=== PATIENT | female | born 1970 ===

== ENCOUNTER 2017-04-07 07:05 | Inpatient (IN) | payer OTHER, MEDICAID ==
[2017-03-23 14:02] LABS: APPEARANCE,URINE CLEAR; KETONES,URINE NEGATIVE (NEGATIVE); LEUKOCYTE ESTERASE ,URINE 2+ (NEGATIVE); NITRITE,URINE NEGATIVE (NEGATIVE); PH,URINE 5 (4.5-8.0); PROTEIN,URINE NEGATIVE (NEGATIVE); UROBILINOGEN,URINE NORMAL MG/DL (0.0-1.0)
[2017-03-23 14:03] LABS: BASOPHILS % (AUTO) 1.2 % (0.0-2.0); EOSINOPHILS % (AUTO) 2.1 % (0.0-3.0); MEAN CORPUSCULAR HEMOGLOBIN 32.1 PG (27.0-31.0); MEAN CORPUSCULAR HGB CONC 33.9 G/DL (32.0-36.0); MEAN CORPUSCULAR VOLUME 95 FL (80-99); MEAN PLATELET VOLUME 7.7 FL (6.5-10.1); MONOCYTES % (AUTO) 6.7 % (1.0-10.0); PLATELET COUNT 327 K/UL (150-450); RED BLOOD COUNT 4.16 M/UL (4.20-5.40); RED CELL DISTRIBUTION WIDTH 11.5 % (11.6-14.8); WHITE BLOOD COUNT 4.6 K/UL (4.8-10.8)
[2017-03-23 14:10] LABS: BACTERIA,URINE FEW /HPF; SQUAMOUS EPITHELIAL CELL,UR FEW /LPF (NONE/OCC)
[2017-03-23 14:16] LABS: ANION GAP 9 mmol/L (5-15); CALCIUM 9.5 MG/DL (8.5-10.1); CARBON DIOXIDE 28 MMOL/L (21-32); CHLORIDE 104 MMOL/L (98-107); CREATININE 0.6 MG/DL (0.55-1.30); GLOMERULAR FILTRATION RATE > 60 mL/min (>60); POTASSIUM 3.8 MMOL/L (3.5-5.1); SODIUM 140 MMOL/L (136-145)
--- NOTE | 2017-03-23 17:08 | Diagnostic Imaging Report ---
Indication: Cough Technique: 2 views of the chest Comparison: none. Findings: Lungs and pleural spaces are clear. Heart size is normal. Bones are unremarkable. Impression: No acute process
--- NOTE | 2017-04-02 17:58 | Cardiology Report ---
APPROVED REPORT EKG Measurement Heart [id number] Normal sinus rhythm Nonspecific T wave abnormality Abnormal ECG
--- NOTE | 2017-04-06 15:15 | Pre-op HX & Phy Repo 2 SIG ---
DATE OF ADMISSION: 04/07/2017 Scheduled for surgery 04/07/2017. HISTORY OF PRESENT ILLNESS: The patient is a 47-year-old female, in overall good health with a carcinoma of the right breast. The patient presented with a mass in the periphery of the upper outer quadrant of the right breast and core biopsy revealed invasive ductal carcinoma. The patient had marker studies revealing initially equivocal HER2/raman, which was found to be negative on subsequent panel testing. The patient is scheduled to undergo right breast partial mastectomy and right axillary lymph node biopsy. PAST MEDICAL HISTORY: None. MEDICATIONS: None. ALLERGIES: None. OPERATIONS: None. PHYSICAL EXAMINATION: GENERAL: The patient is 4 foot 5 inches, 170 pounds. HEENT: Within normal limits. LUNGS: Clear. HEART: Regular rhythm. BREASTS: Reveal a 3 x 5 cm mass in the periphery of the upper outer quadrant of the right breast. The left breast was unremarkable. There is no palpable axillary or supraclavicular lymphadenopathy. ABDOMEN: Soft. PELVIC AND RECTAL: Per primary care physician. EXTREMITIES: Without edema. NEUROLOGIC: Physiologic. IMPRESSION: Invasive ductal carcinoma, right breast. PLAN: I have had a full discussion with the patient regarding the nature of her surgery. Indications, alternatives, options, and risks including bleeding, infection, and need for additional surgery based on final pathology, potential for radiation therapy to the remaining right breast and chemotherapy if axillary lymph nodes are involved with metastatic cancer. All questions have been answered. I have discussed the risks including scarring deformity of the breast etc. Bret Esteves M.D. DR: DEO/DALTON JOB#: [id number] CC:
[~2017-04-07] VITALS: Ht 152.4 cm; Wt 77.1 kg
[2017-04-07] VITALS (14 sets, daily range): BP systolic 97–152; BP diastolic 48–72
[~2017-04-07 07:05] MED LIST: NKM
[2017-04-07] MEDS ORDERED: ceFAZolin sod 2 GM in D5W 110 ML IV ONE (08:00)
[2017-04-07] MEDS ORDERED: Bupivacaine 0.5% Inj 30 ml vial INJ ONE (08:05)
[2017-04-07] MEDS ORDERED: Lidocaine 1% 10mg/ml/Epi 0.005mg/ml 30ml vial INJ ONE (08:05)
--- NOTE | 2017-04-07 08:17 | Pre-Procedure Note/Attestation ---
Pre-Procedure Note/Attestation Complete Prior to Procedure Planned Procedure: right Procedure Narrative: right breast partial mastectomy and axillary lymph node biopsy Indications for Procedure Pre-Operative Diagnosis: carcinoma right breast Attestation I attest that I discussed the nature of the procedure; its benefits; risks and complications; and alternatives (and the risks and benefits of such alternatives ), prior to the procedure, with the patient (or the patient's legal employee representative). I attest that, if there was a reasonable possibility of needing a blood transfusion, the patient (or the patient's legal employee representative) was given the [facility] standardized written summary, pursuant to the Keyshawn Pittman Blood Safety Act ([place] Health and Safety Code # 1645, as amended). I attest that I re-evaluated the patient just prior to the surgery and that there has been no change in the patient's H&P, except as documented below:none XIANG DE LA TORRE Apr 07, 2017 08:17
[2017-04-07] MEDS ORDERED: Sterile Water Irrig 1000ml IRRIG ONE (09:00)
[2017-04-07] MEDS ORDERED: NS Irrig 1000ml ONE (09:00)
[2017-04-07] MEDS ORDERED: Glycopyrrolate 0.2mg/ml 1ml Vial ONE (09:00)
[2017-04-07] MEDS ORDERED: LR 1000ml ONE (09:00)
[2017-04-07] MEDS ORDERED: Zemuron 50mg/5ml Inj IV ONE (09:00)
[2017-04-07] MEDS ORDERED: Neostigmine 1mg/ml 10ml Inj ONE (09:00)
[2017-04-07] MEDS ORDERED: Succinylcholine 20mg/ml 10ml vial ONE (09:00)
[2017-04-07] MEDS ORDERED: fentaNYL 100 mcg/2 mL IV ONE (09:00)
[2017-04-07] MEDS ORDERED: Propofol 200mg/20ml IV ONE (09:00)
[2017-04-07] MEDS ORDERED: Ketorolac 30mg Inj ONE (09:00)
[2017-04-07] MEDS ORDERED: Midazolam 2mg/2ml Inj ONE (09:00)
[2017-04-07] MEDS ORDERED: LR 1000ml 1,000 ML IVLG SCH (09:44)
--- NOTE | 2017-04-07 09:44 | Anethesia Preoperative Eval ---
Anesthesia Pre-op PMH/ROS General Date of Evaluation: Apr 07, 2017 Time of Evaluation: 08:50 Anesthesiologist: Damari ASA Score: ASA 2 Mallampati Score Class I : Soft palate, uvula, fauces, pillars visible Class II: Soft palate, uvula, fauces visible Class III: Soft palate, base of uvula visible Class IV: Only hard plate visible Mallampati Classification: Class III Surgeon: Linn Diagnosis: R breast CA Surgical Procedure: R partial mastectomy with axillary l/n disection Anesthesia History: none Family History: no anesthesia problems Allergies: Coded Allergies: No Known Allergies (Unverified , 04/07/17) Medications: see eMAR Past Medical History Cardiovascular: Denies: HTN, CAD, OR, valve dz, arrhythmia, other Pulmonary: Denies: asthma, COPD, ANDRE, other Gastrointestinal/Genitourinary: Reports: GERD - mild, Denies: CRI, ESRD, other Neurologic/Psychiatric: Reports: depression/anxiety, Denies: dementia, CVA, TIA, other Endocrine: Denies: DM, hypothyroidism, steroids, other HEENT: Denies: cataract (L), cataract (R), glaucoma, [place] (L), [place] (R), other Hematology/Immune: Denies: anemia, DVT, bleeding disorder, other Musculoskeletal/Integumentary: Denies: OA, RA, DJD, DDD, edema, other Other: obesity PMH Narrative: as above PSxH Narrative: none Anesthesia Pre-op Phys. Exam Physician Exam Last Vital Signs Date Time Temp Pulse Resp B/P (MAP) Pulse Ox O2 Delivery O2 Flow Rate FiO2 04/07/17 07:37 98.8 86 17 152/71 98 Room Air Constitutional: NAD Neurologic: CN 2-12 intact Cardiovascular: RRR, no M/R/G Respiratory: CTA Gastrointestinal: S/NT/ND Airway Exam Mallampati Score: Class III MO: limited Neck: short ROM: limited Teeth: intact Dentures: no upper, no lower Anesthesia Pre-op A/P Labs see chart Urine Test Test 04/07/17 07:30 Urine HCG, Qualitative Negative Studies Pre-op Studies: EKG - NSR Risk Assessment & Plan Assessment: ASA 2 Plan: GA with ETT PONV prevention Status Change Before Surgery: No Pre-Antibiotics Drug: Ancef 2 gr Given Within 1 Hr of Incision: Yes Time Given: 09:15 CHERELLE JUDD M.D. Apr 07, 2017 09:44
[2017-04-07] MEDS ORDERED: Meperidine 50mg/ml Inj(FOR RIGORS ONLY) IV PRN (09:45)
[2017-04-07] MEDS ORDERED: Hydromorphone 0.5mg/0.5ml inj IVP PRN (09:45)
[2017-04-07] MEDS ORDERED: Ketorolac 30mg Inj IV PRN (09:45)
[2017-04-07] MEDS ORDERED: Metoclopramide 10mg/2ml Inj IVP PRN (09:45)
[2017-04-07] MEDS ORDERED: Midazolam 2mg/2ml Inj IVP PRN (09:45)
[2017-04-07] MEDS ORDERED: DiphenhydrAMINE 50mg/ml Inj IVP PRN (09:45)
--- NOTE | 2017-04-07 10:41 | Brief Operative Note ---
Immediate Post Operative Note Operative Note Pre-op Diagnosis: carcinoma right breast Procedure: right breast partial mastectomy and axillary lymph node biopsy Post-op Diagnosis: same Post-op Diagnosis: same as pre-op Findings: consistent w/pre-op dx studies Surgeon: jackson Anesthesiologist: shannon Anesthesia: general Specimen: yes - breast cancer and axillary lymph node Complications: none Condition: stable Fluids: see anesthesia record Estimated Blood Loss: minimal Drains: JENNIFER Implant(s) used?: No XIANG DE LA TORRE Apr 07, 2017 10:41
--- NOTE | 2017-04-07 11:48 | Immediate Post-Op Evaluation ---
Immediate Post-Op Evalulation Immediate Post-Op Evalulation Procedure: R partial mastectomy with axillary l/n disection Date of Evaluation: Apr 07, 2017 Time of Evaluation: 10:46 IV Fluids: 1000 Blood Products: none Estimated Blood Loss: 50 Urinary Output: none Blood Pressure Systolic: 116 Blood Pressure Diastolic: 78 Pulse Rate: 86 Respiratory Rate: 22 O2 Sat by Pulse Oximetry: 99 Temperature (Fahrenheit): 97.6 Pain Score (1-10): 2 Nausea: No Vomiting: No Complications none Patient Status: reacts, patent, extubated, none Hydration Status: adequate CHERELLE JUDD M.D. Apr 07, 2017 11:48
[2017-04-07] MEDS ORDERED: Norco 5mg/325mg tab ORAL PRN (13:00)
[2017-04-07] MEDS ORDERED: HYDROmorphone 1mg/ml Carpuject SUBQ PRN (13:00)
[2017-04-07] MEDS ORDERED: D5 1/2NS w/KCl 20mEq 1,000 ML IV SCH (13:30)
--- NOTE | 2017-04-07 17:00 | Operative Note - Dictated ---
DATE OF OPERATION: 04/07/2017 SURGEON: Bret Esteves M.D. IT SECURITY CONSULTANT SURGEON: None. ANESTHESIOLOGIST: Pete Wetzel M.D. TYPE OF ANESTHESIA: General endotracheal. PREOPERATIVE DIAGNOSIS: Carcinoma, right breast. POSTOPERATIVE DIAGNOSIS: Carcinoma, right breast. OPERATION PERFORMED: Right breast partial mastectomy and right axillary lymph node biopsy. DESCRIPTION OF PROCEDURE: The patient was taken to the operating room and under general anesthesia with sequential compression device stockings in place, she was prepped and draped in the usual fashion. A transverse curvilinear incision was made overlying the large tumor in the upper outer quadrant of the right breast. Flaps were dissected circumferentially and the mass was resected down to the chest wall placing sutures to orient it for the pathologist. The margins appeared clear. Hemostasis was carefully achieved with cautery. The incision was closed with interrupted deep dermal subcutaneous 3-0 Vicryl sutures and skin rigo. Attention was then directed to the right axilla where a transverse curvilinear axillary incision was made achieving hemostasis with cautery and dividing the clavipectoral fascia. One fairly large lymph node was readily identified and was resected using clips and cautery for hemostasis. It was given to the pathologist to confirm the presence of lymph node with no other palpable lymph nodes. Through a separate stab incision inferior, a 19 mm Jaylon drain was placed into the axilla and sutured to the skin with 2-0 nylon skin suture. After ascertaining that hemostasis was secure the clavipectoral fascia was closed with interrupted 3-0 Vicryl, subcutaneous tissues and deep dermal tissues closed with interrupted 3-0 Vicryl, and the skin closed with continuous 4-0 Monocryl subcuticular suture. Mastisol and half-inch Steri-Strips were applied followed by dry sterile dressings to both incisions. The patient was placed in [facility]. The patient tolerated the procedure well and left the operating room in stable condition. Bret Esteves M.D. DR: Eddie JOB#: [id number] CC: RYAN
[2017-04-08] VITALS: BP 120/55
[2017-04-08 04:00] VITALS: BP 103/62
[2017-04-08 08:32] VITALS: BP 113/54
--- NOTE | 2017-04-08 09:03 | General Progress Note ---
Progress Note Progress Note AVSS c/o pain in throat (difficult intubation in surgery) + axilla pain Right breast incision clean, no swelling Right axilla incision clean JENNIFER drain 15cc serosang Imp. Pain increased this AM Plan: Cepacol lozenges [place] vs. dilaudid SQ Teach patient re care of JENNIFER drain anticipate discharge in AM XIANG DE LA TORRE Apr 08, 2017 09:03
[2017-04-08 09:05] VITALS: BP 124/74
--- NOTE | 2017-04-08 09:05 | 48 Hour Post Anesthesia Eval ---
Post Anesthesia Evaluation Procedure: R partial mastectomy with axillary l/n disection Date of Evaluation: Apr 08, 2017 Time of Evaluation: 09:04 Blood Pressure Systolic: 124 0: 74 Pulse Rate: 68 Respiratory Rate: 22 Temperature (Fahrenheit): 97.8 O2 Sat by Pulse Oximetry: 99 Airway: patent Nausea: No Vomiting: No Pain Intensity: 2 Hydration Status: adequate Cardiopulmonary Status: stable Mental Status/LOC: patient returned to baseline Follow-up Care/Observations: n/a Post-Anesthesia Complications: none Follow-up care needed: ready to discharge CHERELLE JUDD M.D. Apr 08, 2017 09:05
--- NOTE | 2017-04-11 10:03 | Discharge Summary ---
Discharge Summary Hospital Course Date of Admission Apr 07, 2017 at 07:06 Date of Discharge Apr 08, 2017 at 11:24 Admitting Diagnosis Carcinoma, right breast. Reason for Hospitalization: elective surgery HPI Barbi Duckworth is a 47 year old female who was admitted on Apr 07, 2017 at 07:06 for Carcinoma Right Breast and elective surgery Procedures OPERATION PERFORMED: Right breast partial mastectomy and right axillary lymph node biopsy. Hospital Course s/p surgery course of recovery uneventful c/o throat pain ( difficult intubation ) throat lozenges prn pain management incision right axilla and right breast clean, no edema, no drainage JENNIFER with small amount ( 15 ml) of serosanguineous drainage patient was taught self care of JENNIFER diet as tolerated, able to tolerate voided freely ambulated stable for discharge and fup as outpatient with surgeon as advised script for analgesic provided by surgeon DISCHARGE DIAGNOSIS invasive ductal carcinoma Right breast s/p right partial mastectomy with axillary lymph node dissection Discharge Condition Upon Discharge: stable Discharge Disposition Patient was discharged to Home (01) Discharge Diagnoses: Discharge Instructions Discharge Instructions Special Instructions I have been assigned to complete a D/C Summary on this account. I was not involved in the patient management Teressa Barth NP ([place]) Apr 11, 2017 10:03
== END 2017-04-08 11:24 | disposition home or self-care (01) | DRG 363 ==
LOC: SUR 07:05 → 3E 07:06
PROC: 07B50ZX Excision of Right Axillary Lymphatic, Open Approach, Diagnostic (ICD-10-PCS; 2017-04-07)
PROC: 0HBT0ZZ Excision of Right Breast, Open Approach (ICD-10-PCS; principal; 2017-04-07 09:00)
DX: C50.411 Malignant neoplasm of upper-outer quadrant of right female breast (principal)
CPT/HCPCS: 36415; 71020; 80048; 81001; 81025; 85025; 85610; 85730; 93005; 94003; 94150; J2250; J2405; J2710